=== PATIENT | male | born 1995 | race Asian ===

== ENCOUNTER 2017-02-21 16:36 | Emergency (ER) | payer OTHER ==
[2017-02-21 18:03] LABS: PLATELET COUNT 295 x10^3mcL (130-400)
[2017-02-21 18:04] LABS: UA SPECIFIC GRAVITY >=1.030 (1.005-1.035); microscopic required? YES; urine erythrocyte 1+ (NEGATIVE)
[2017-02-21 18:04] LABS: RED CELL DISTRIBUTION WIDTH 15.4 % (11.5-14.5)
[2017-02-21 18:06] LABS: BILIRUBIN TOTAL 0.66 mg/dL (0.20-1.00); CARBON DIOXIDE 18.4 mmol/L (21-32); POTASSIUM SERUM 5.3 mmol/L (3.5-5.1); TOTAL PROTEIN, SERUM 7.7 g/dL (6.4-8.2)
[2017-02-21 18:36] LABS: CALCIUM 8.2 mg/dL (8.5-10.1); CREATININE SERUM 2.8 mg/dL (0.7-1.3); MAGNESIUM 2.3 mg/dL (1.8-2.4)
[2017-02-21 18:38] LABS: T4(THYROXINE) 1.9 ug/dL (4.7-13.3)
[2017-02-21 18:39] LABS: BAND NEUTROPHIL 2 % (0-10); BASOPHIL 0 % (0-2); MONOCYTE 7 % (0-7); MYELOCYTE 2 % (0-2); SEGMENTED NEUTROPHILS 57 % (37-75)
[2017-02-21 18:42] LABS: PLATELET MORPHOLOGY PLATELETS NORMAL
[2017-02-21 20:06] LABS: AMPHETAMINE QUAL UR POSITIVE (NEG <=1000)
[2017-02-21 21:24] VITALS: BP 144/94
== END 2017-02-21 21:24 | disposition short-term general hospital (02) ==
LOC: ED 16:36
PROVIDERS: Emergency Medicine
DX: S14.152A Other incomplete lesion at C2 level of cervical spinal cord, initial encounter (principal); S14.153A Other incomplete lesion at C3 level of cervical spinal cord, initial encounter; M62.82 Rhabdomyolysis; N17.9 Acute kidney failure, unspecified; E87.0 Hyperosmolality and hypernatremia; R74.0 Nonspecific elevation of levels of transaminase and lactic acid dehydrogenase [LDH]; F15.90 Other stimulant use, unspecified, uncomplicated; R79.89 Other specified abnormal findings of blood chemistry; X58.XXXA Exposure to other specified factors, initial encounter; Y93.89 Activity, other specified; Y99.8 Other external cause status; Y92.488 Other paved roadways as the place of occurrence of the external cause
CPT/HCPCS: 36600; 82962; 83880; G0480; J1956; J2060; J7030; Q0092